=== PATIENT | female | born 1995 | race Two or more races ===

== ENCOUNTER 2018-08-08 21:29 | Outpatient (CLI) | payer OTHER ==
[2018-08-08] MEDS ORDERED: ALDOMET500 MG PO (21:45)
[2018-08-08] MEDS ORDERED: PRENATAL TABLE1 EAC1 PO (21:46)
[2018-08-08] MEDS ORDERED: ASA81 MG PO (21:47)
== END 2018-08-09 11:33 | disposition home or self-care (01) ==
LOC: OBS/DEL 21:29
DX: O76 Abnormality in fetal heart rate and rhythm complicating labor and delivery (principal); O60.02 Preterm labor without delivery, second trimester; Z34.02 Encounter for supervision of normal first pregnancy, second trimester

== ENCOUNTER 2018-12-03 21:40 | Inpatient (IN) | payer OTHER ==
[~2018-12-03] VITALS: Ht 167.6 cm; Wt 111.6 kg
[~2018-12-03 21:40] MED LIST: ALDOMET500 MG PO; ASA81 MG PO; PRENATAL TABLE1 EAC1 PO
== END 2018-12-06 12:36 | DRG 807 ==
LOC: LDR 21:40 → OB/GYN 12-04 17:30
PROVIDERS: ADMIT Obstetrics & Gynecology
PROC: 4A1HXCZ Monitoring of Products of Conception, Cardiac Rate, External Approach (ICD-10-PCS; 2018-12-03)
PROC: 10E0XZZ Delivery of Products of Conception, External Approach (ICD-10-PCS; principal; 2018-12-04)
PROC: 0W8NXZZ Division of Female Perineum, External Approach (ICD-10-PCS; 2018-12-04)
PROC: 4A033R1 Measurement of Arterial Saturation, Peripheral, Percutaneous Approach (ICD-10-PCS; 2018-12-04)
DX: O80 Encounter for full-term uncomplicated delivery (principal); Z37.0 Single live birth; Z3A.37 37 weeks gestation of pregnancy